=== PATIENT | female | born 1985 | race Caucasian/White ===

== ENCOUNTER 2017-07-18 13:35 | Emergency (ER) | payer OTHER ==
--- NOTE | 2017-07-18 13:43 | ED Physician Documentation ---
General Adult - HISTORIAN Historian: patient - HPI Stated Complaint: abd pain Chief Complaint: General Adult Onset: other (2 weeks) Timing: still present Severity: moderate Further Comments: yes (Pt is a 31 yo female with abd pain, alternating diarrhea/ constipation x 1 month. Pt has blood with bm's and rectal bleeding also when she is not having a bowel movement. Pt is concerned about Crohn's dz. Pt has family hx cancers.) - ROS CONST: no problems EYES/ENT: none CVS/RESP: none GI/: abdominal pain, diarrhea, other (constipation) MS/SKIN/LYMPH: none - PAST HX Past History: other (anxiety) Surgeries/Procedures: cholecystectomy, other (ectopic ; fallopian tube) Allergies/Adverse Reactions: Allergies Allergy/AdvReac Type Severity Reaction Status Date / Time No Known Allergies Allergy Unverified 07/18/17 14:52 Home Medications: Ambulatory Orders Medication Instructions Recorded Clonazepam [Klonopin] 1 mg PO PRN 07/18/17 - SOCIAL HX Smoking History: cigarettes - FAMILY HX Family History: Yes (family hx cancer, nos) - REVIEWED ASSESSMENTS Nursing Assessment Reviewed: Yes Vitals Reviewed: Yes Progress - Progress Progress: NS 500 cc IVF Zofran 4 mg IV hemocult - neg Toradol 30 mg IV Bentyl 20 mg po improved after Bentyl Rx Bentyl 20 mg. Take one by mouth for abdominal pain/cramping up to 4 times daily. Possible IBS. Follow up with primary provider or Gastrointestinal (GI) doctor for evaluation with possible colonoscopy. General Adult Physical Exam - PHYSICAL EXAM GENERAL APPEARANCE: moderate distress EENT: pharynx normal NECK: normal inspection, supple RESPIRATORY: no resp distress, chest non-tender, breath sounds normal CVS: reg rate & rhythm, heart sounds normal ABDOMEN: soft, normal bowel sounds, tenderness (diffuse abd tenderness). No: rebound, guarding RECTAL: normal exam, normal rectal tone, heme negative stool. No: hemorrhoids BACK: normal inspection, no CVA tenderness SKIN: warm/dry, normal color EXTREMITIES: non-tender, normal range of motion, no evidence of injury NEURO: oriented X3, motor nml, sensation nml Discharge Clincal Impression: Abdominal pain Referrals: Primary Doctor,No [Primary Care Provider] - Home Medications: Ambulatory Orders Clonazepam [Klonopin] 1 mg PO PRN 07/18/17 Condition: Stable Disposition: 01 HOME, SELF-CARE Decision to Admit: NO Decision Time: 17:15
[2017-07-18 14:02] LABS: APPEARANCE,URINE CLEAR (CLEAR); COLOR,URINE YELLOW (YELLOW); OCCULT BLOOD,URINE NEGATIVE (NEGATIVE); UROBILINOGEN URINE 0.2 Eu (0.2-1.0)
[2017-07-18 14:27] LABS: BASOPHILS % 0.7 (0.0-1.5); EOSINOPHILS % 1.6 % (0.0-6.8); MEAN CORPUSCULAR HEMOGLOBIN 30.7 pg (28.0-34.0); MONOCYTES % 5.2 % (0.0-11.0); NEUTROPHILS # 4.6 # k/uL (1.4-7.7)
[2017-07-18 14:32] LABS: eGFR (African) > 60; eGFR (Non-African) > 60
[2017-07-18] MEDS: 0.9 % SODIUM CHLORIDE 500 ML IV ONE (14:45)
[2017-07-18] MEDS: ONDANSETRON HCL/PF 4 MG/ 2ML VIAL IVP ONE (15:04)
[2017-07-18] MEDS: DICYCLOMINE HCL 20 MG TABLET PO ONE (15:15)
[2017-07-18] MEDS: KETOROLAC TROMETHAMINE 30 MG/1ML VIAL IVP ONE (16:10)
[2017-07-18 17:15] VITALS: BP 105/68
== END 2017-07-18 16:45 | disposition home or self-care (01) ==
LOC: ED 13:35
DX: R10.9 Unspecified abdominal pain (principal)
CPT/HCPCS: 80053; 81002; 81025; 82150; 84703; 85025; J1885; J2405; J7060; 96361; 96374; 96375; 99283; S1016